=== PATIENT | female | born 1970 | race Hispanic/Latino ===

== ENCOUNTER 2017-08-25 08:18 | Emergency (ER) | payer OTHER, SELFPAY ==
[2017-08-25] MEDS ORDERED: Ibuprofen 800 MG TAB ONE (09:13)
== END 2017-08-25 11:32 | disposition home or self-care (01) ==
LOC: ERS 08:18
DX: J11.1 Influenza due to unidentified influenza virus with other respiratory manifestations (principal); E11.9 Type 2 diabetes mellitus without complications; I11.0 Hypertensive heart disease with heart failure; I50.9 Heart failure, unspecified; E66.9 Obesity, unspecified
CPT/HCPCS: 99283

== ENCOUNTER 2021-08-17 18:24 | Inpatient (IN) | payer BC ==
[2021-08-17] MEDS ORDERED: Morphine 4 MG/ML VIAL ONE (18:50)
[2021-08-17] MEDS ORDERED: Acetaminophen 500 MG TAB ONE (18:51)
[2021-08-17] MEDS ORDERED: Vancomycin 1 GM/200 ML BAG ONE (18:51)
[2021-08-17] MEDS ORDERED: Cefepime 2 GM VIAL ONE (18:51)
[2021-08-17] MEDS ORDERED: Ibuprofen 200 MG TAB ONE (18:51)
[2021-08-17 18:58] LABS: #Basophils 0.1 thou/uL (0.0-0.2); #Eosinphils 0.2 thou/uL (0.0-0.7); #Monocytes 0.9 thou/uL (0.11-0.59); #Neutrophils 6.1 thou/uL (1.40-6.50); %Basophils 0.7 % (0.0-1.0); %Eosinophils 2.6 % (0.0-10.0); %Lymphocytes 21.7 % (21.0-51.0); %Monocytes 9.3 % (0.0-10.0); %Neutrophils 65.7 % (42.0-75.0); Hemoglobin 13.6 g/dL (12.0-16.0); Mean Corpuscular HGB CONC 30.6 g/dL (32.0-36.0); Mean Corpuscular Hemoglobin 25.9 pg (27.0-31.0); Mean Corpuscular Volume 84.6 fL (78.0-98.0); Mean Platelet Volume 7.1 fL (7.4-10.4); Platelet Count 306 thou/uL (130-400); RBC Distribution Width 13.4 % (11.5-14.5); Red Blood Cell (RBC) Count 5.24 mill/uL (4.20-5.40); White Blood Cell (WBC) Count 9.3 thou/uL (4.8-10.8)
[2021-08-17 19:13] LABS: ALT (SGPT) 14 U/L (8-55); AST (SGOT) 14 U/L (5-34); Albumin 4.2 g/dL (3.5-5.0); Alkaline Phosphatase 75 U/L (40-110); Anion Gap 14 mmol/L (10-20); BUN (Urea Nitrogen) 16 mg/dL (7.0-18.7); Bilirubin, Total 0.5 mg/dL (0.2-1.2); Calc. Creatinine Clearance 0 mL/min (70-130); Calcium 9.4 mg/dL (7.8-10.44); Carbon Dioxide 25 mmol/L (22-29); Chloride 102 mmol/L (98-107); Globulin 3.7 g/dL (2.4-3.5); Glucose 329 mg/dL (70-105); Potassium 3.8 mmol/L (3.5-5.1); Protein, Total 7.9 g/dL (6.0-8.3); Sodium 137 mmol/L (136-145)
[2021-08-17 19:16] LABS: INR-International Normal Ratio 1.1; Prothrombin Time 13.9 sec (12.0-14.7)
[2021-08-17 19:17] LABS: PTT 40.6 sec (22.9-36.1)
[2021-08-17] MEDS ORDERED: Lidocaine 1% w/Epinephrine 1:100K 20 ML VIAL ONE (19:30)
[2021-08-17 20:36] LABS: Bilirubin Negative (Negative); Blood, Urine Negative (Negative); Clarity Clear (Clear); Glucose, Urine (Dipstick) Greater than 1000 mg/dL (Negative); Ketone, Urine Negative (Negative); Leukocyte Negative Leu/uL (Negative); Nitrite Negative (Negative); Protein, Urine (Dipstick) 20 mg/dL (Neg-Trace); Specific Gravity, Urine 1.039 (1.002-1.036); Urobilinogen Normal mg/dL (Less than 2)
[2021-08-17] MEDS ORDERED: Dextrose 5% in Water 1,000 ML IV PRN (20:43)
[2021-08-17] MEDS ORDERED: Dextrose 50% Abboject 50 ML SYRINGE SLOW IVP PRN (20:43)
[2021-08-17] MEDS ORDERED: Ondansetron ODT 4 MG TAB PO PRN (20:43)
[2021-08-17] MEDS ORDERED: Acetaminophen 650 MG Suppository PR PRN (20:43)
[2021-08-17] MEDS ORDERED: Ondansetron PF 4 MG/2 ML Vial IVP PRN (20:43)
[2021-08-17 21:38] LABS: RBC Count-Automated (BF) 340577 /cu.mm; WBC/Nucleated-Auto (BF) 5073 /cu.mm
[2021-08-17 21:39] LABS: Body Fluid Source Synovial Fluid; Tube # EDTA
[2021-08-17 21:40] LABS: BF Color Red; Clarity Cloudy/Turbid (Clear)
[2021-08-17 21:41] LABS: BF Segmented Neutrophils 90 %; Cell Count Non Hematic 7 %; Lymphocytes 3 %
[2021-08-18 01:51] VITALS: BMI 32.2
[2021-08-18] MEDS: Sodium Chloride 0.9% 1,000 ML IV SCH ×3 (03:16→18:16)
[2021-08-18 06:13] LABS: #Eosinphils 0.3 thou/uL (0.0-0.7); #Lymphocytes 1.3 thou/uL (1.20-3.40); #Monocytes 0.6 thou/uL (0.11-0.59); #Neutrophils 3.7 thou/uL (1.40-6.50); %Basophils 0.3 % (0.0-1.0); %Eosinophils 4.9 % (0.0-10.0); %Lymphocytes 21.5 % (21.0-51.0); %Monocytes 10.6 % (0.0-10.0); %Neutrophils 62.6 % (42.0-75.0); Hemoglobin 11.1 g/dL (12.0-16.0); Mean Corpuscular HGB CONC 31.9 g/dL (32.0-36.0); Mean Corpuscular Hemoglobin 27.4 pg (27.0-31.0); Mean Corpuscular Volume 85.8 fL (78.0-98.0); Mean Platelet Volume 7.3 fL (7.4-10.4); Platelet Count 218 thou/uL (130-400); Red Blood Cell (RBC) Count 4.07 mill/uL (4.20-5.40); White Blood Cell (WBC) Count 5.9 thou/uL (4.8-10.8)
[2021-08-18 06:17] LABS: Anion Gap 9 mmol/L (10-20); BUN (Urea Nitrogen) 9 mg/dL (7.0-18.7); Calc. Creatinine Clearance 165 mL/min (70-130); Calcium 8.5 mg/dL (7.8-10.44); Carbon Dioxide 26 mmol/L (22-29); Chloride 109 mmol/L (98-107); Glucose 226 mg/dL (70-105); Potassium 3.7 mmol/L (3.5-5.1); Sodium 140 mmol/L (136-145)
[2021-08-18] MEDS ORDERED: Vancomycin 1.5 GRAM/300 ML BAG 1.5 GM in Premix Bag 1 BAG IVPB SCH (07:00)
[2021-08-18] MEDS: Vancomycin HCl 1.5 GM in Sodium Chloride 0.9% 250 ML 300 ML IVPB SCH ×2 (07:20→18:19)
[2021-08-18] MEDS: Cefepime 2 GM in Sodium Chloride 0.9% 100 ML IVPB SCH ×2 (08:43→22:33)
[2021-08-18] MEDS ORDERED: Enoxaparin Sodium 40 MG/0.4 ML SYRINGE SC SCH (09:00)
[2021-08-18] MEDS ORDERED: FLU VACC QS2021-22(6MOS UP)/PF 60 MCG/0.5 ML SYRINGE IM ONE (09:00)
[2021-08-18] MEDS: Acetaminophen 325 MG TAB PO PRN ×2 (10:06→18:16)
[2021-08-18 11:44] LABS: SARS-CoV-2 PCR by NAA Not Detected (NotDetected)
[2021-08-18] MEDS ORDERED: Carvedilol 6.25 MG TAB PO SCH (13:45)
[2021-08-18] MEDS ORDERED: Lisinopril 10 MG TAB PO SCH (13:45)
[2021-08-18] MEDS ORDERED: CEFAZOLIN 2 GM in Premix Bag 1 BAG IVPB SCH (14:00)
[2021-08-18] MEDS: Carvedilol 6.25 MG TAB PO SCH (22:33)
[2021-08-18] MEDS: Lisinopril 10 MG TAB PO SCH (22:34)
[2021-08-19] MEDS: Carvedilol 6.25 MG TAB PO SCH ×2 (06:32→20:32)
[2021-08-19] MEDS: Sodium Chloride 0.9% 1,000 ML IV SCH ×2 (07:48→13:15)
[2021-08-19] MEDS: Vancomycin HCl 1.5 GM in Sodium Chloride 0.9% 250 ML 300 ML IVPB SCH ×2 (07:49→18:02)
[2021-08-19] MEDS: Lisinopril 10 MG TAB PO SCH ×2 (08:40→20:32)
[2021-08-19] MEDS: Acetaminophen 325 MG TAB PO PRN (08:44)
[2021-08-19] MEDS: Cefepime 2 GM in Sodium Chloride 0.9% 100 ML IVPB SCH ×2 (08:45→20:32)
[2021-08-19] MEDS: HumaLOG 300 UNITS/3 ML VIAL SC PRN ×3 (12:19→20:33)
[2021-08-19 18:26] LABS: Vancomycin, Trough 5.8 ug/mL
[2021-08-20] MEDS: Sodium Chloride 0.9% 1,000 ML IV SCH ×2 (00:04→10:21)
[2021-08-20] MEDS: Vancomycin HCl 1.5 GM in Sodium Chloride 0.9% 250 ML 300 ML IVPB SCH ×3 (01:02→22:40)
[2021-08-20] MEDS: Carvedilol 6.25 MG TAB PO SCH ×2 (05:31→20:58)
[2021-08-20] MEDS: Cefepime 2 GM in Sodium Chloride 0.9% 100 ML IVPB SCH ×2 (08:22→21:00)
[2021-08-20] MEDS: Lisinopril 10 MG TAB PO SCH ×2 (08:22→20:59)
[2021-08-20] MEDS: HumaLOG 300 UNITS/3 ML VIAL SC PRN ×3 (11:14→21:02)
[2021-08-20 20:51] LABS: Vancomycin, Trough 8.2 ug/mL
[2021-08-20] MEDS: Acetaminophen 325 MG TAB PO PRN (21:00)
[2021-08-20] MEDS ORDERED: Vancomycin HCl 1.5 GM in Sodium Chloride 0.9% 250 ML 300 ML IVPB SCH (21:00)
[2021-08-21] MEDS: Vancomycin HCl 1.5 GM in Sodium Chloride 0.9% 250 ML 300 ML IVPB SCH (03:02)
[2021-08-21] MEDS: HumaLOG 300 UNITS/3 ML VIAL SC PRN ×2 (05:33→12:12)
[2021-08-21] MEDS: Lisinopril 10 MG TAB PO SCH (08:26)
[2021-08-21] MEDS: Carvedilol 6.25 MG TAB PO SCH (08:27)
[2021-08-21] MEDS: Cefepime 2 GM in Sodium Chloride 0.9% 100 ML IVPB SCH (08:27)
[2021-08-21] MEDS: Acetaminophen 325 MG TAB PO PRN (08:34)
[2021-08-21 12:09] VITALS: BP 158/84; TEMP 97.9
== END 2021-08-21 12:24 | disposition home or self-care (01) | DRG 872 ==
LOC: ERS 18:24 → T4-A 20:14
PROVIDERS: ADMIT Student in an Organized Health Care Education/Training Program; ATTEND Internal Medicine
PROC: 0S9D3ZX Drainage of Left Knee Joint, Percutaneous Approach, Diagnostic (ICD-10-PCS; principal; 2021-08-17)
DX: A41.01 Sepsis due to Methicillin susceptible Staphylococcus aureus (principal); I50.32 Chronic diastolic (congestive) heart failure; L03.116 Cellulitis of left lower limb; M70.42 Prepatellar bursitis, left knee; Z20.822 Contact with and (suspected) exposure to COVID-19; E11.9 Type 2 diabetes mellitus without complications; L30.9 Dermatitis, unspecified; I11.0 Hypertensive heart disease with heart failure; E66.9 Obesity, unspecified; B95.61 Methicillin susceptible Staphylococcus aureus infection as the cause of diseases classified elsewhere; Z90.49 Acquired absence of other specified parts of digestive tract; Z79.899 Other long term (current) drug therapy; Z79.84 Long term (current) use of oral hypoglycemic drugs; Z79.82 Long term (current) use of aspirin; Z68.32 Body mass index [BMI] 32.0-32.9, adult
CPT/HCPCS: 36415; 36416; 80048; 80053; 80202; 81003; 82945; 83605; 85025; 85060; 85610; 85652; 85730; 86140; 87040; 87070; 87077; 87086; 87186; 87205; 89051; 89060; 93005; 94760; J0692; J1650; J1815; J2270; J3370; J3490; J7050; U0003; U0005

== ENCOUNTER 2024-06-16 15:42 | Outpatient (CLI) | payer OTHER | END 2024-06-16 15:43 | disposition home or self-care (01) | LOC: BICMAMMO 15:42 | PROVIDERS: ATTEND Family Medicine | DX: Z12.31 Encounter for screening mammogram for malignant neoplasm of breast (principal) | CPT/HCPCS: 77063; 77067 ==